=== PATIENT | female | born 1975 | race American Indian/Alaskan Native ===

== ENCOUNTER 2017-02-24 13:52 | Emergency (ER) | payer OTHER, BC ==
[2017-02-24 14:10] VITALS: BP 144/84
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
[2017-02-24] MEDS ORDERED: TYLENOL PO ONE (17:03)
[2017-02-24] MEDS ORDERED: BOOSTRIX IM ONE (17:03)
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
== END 2017-02-24 18:20 | disposition home or self-care (01) ==
LOC: ED 13:52
DX: S00.81XA Abrasion of other part of head, initial encounter (principal); M25.562 Pain in left knee; V49.40XA Driver injured in collision with unspecified motor vehicles in traffic accident, initial encounter; Y93.9 Activity, unspecified; Y99.9 Unspecified external cause status; Y92.410 Unspecified street and highway as the place of occurrence of the external cause
CPT/HCPCS: 70450; 81025; 90471; 90715